=== PATIENT | female | born 1960 | race Caucasian/White ===

== ENCOUNTER 2017-11-01 15:20 | Emergency (ER) | payer MEDICAID, OTHER ==
[~2017-11-01] VITALS: Ht 165.1 cm; Wt 57.2 kg
[2017-11-01 15:53] LABS: *BILIRUBIN,URIN NEGATIVE (NEGATIVE); *BLOOD, URINE Trace-lysed (NEGATIVE); *CLARITY,URINE CLEAR (CLEAR); *COLOR,URINE LIGHT YELLOW (YELLOW); *KETONES,URINE NEGATIVE (NEGATIVE); *PROTEIN,URINE NEGATIVE (NEGATIVE); *UROBILINOGEN,URINE 0.2 E.U./dl (NORMAL); LEUKOCYTE ESTERASE ,URINE NEGATIVE (NEGATIVE); NITRITE, URINE NEGATIVE (NEGATIVE); UGLUCOSE NEGATIVE (NEGATIVE)
[2017-11-01 16:02] LABS: SQUAMOUS EPITHELIAL CELL,UR FEW /HPF (NONE SEEN); WBC,URINE 0-3 /HPF (0-3)
--- NOTE | 2017-11-01 16:16 | NUR ---
Patient discharged to home in stable conditon. Written and verbal after care instructions given to patient. Patient verbalizes understanding of instructions.
== END 2017-11-01 16:17 | disposition home or self-care (01) ==
LOC: ER 15:21
DX: N39.0 Urinary tract infection, site not specified (principal); Z88.0 Allergy status to penicillin; Z88.1 Allergy status to other antibiotic agents; Z88.2 Allergy status to sulfonamides
CPT/HCPCS: 81001; 99283; A4663

== ENCOUNTER 2017-11-04 14:00 | Emergency (ER) | payer OTHER ==
[~2017-11-04] VITALS: Ht 162.6 cm; Wt 59.0 kg
--- NOTE | 2017-11-04 14:24 | NUR ---
Urine collected and sent to LAB.
[2017-11-04 14:43] LABS: *BILIRUBIN,URIN NEGATIVE (NEGATIVE); *BLOOD, URINE Trace-lysed (NEGATIVE); *CLARITY,URINE CLEAR (CLEAR); *COLOR,URINE LIGHT YELLOW (YELLOW); *KETONES,URINE NEGATIVE (NEGATIVE); *PROTEIN,URINE NEGATIVE (NEGATIVE); *UROBILINOGEN,URINE 0.2 E.U./dl (NORMAL); LEUKOCYTE ESTERASE ,URINE NEGATIVE (NEGATIVE); NITRITE, URINE NEGATIVE (NEGATIVE); UGLUCOSE NEGATIVE (NEGATIVE)
[2017-11-04 14:55] LABS: RBC,URINE 0-3 /HPF (0-3); SQUAMOUS EPITHELIAL CELL,UR MODERATE /HPF (NONE SEEN); WBC,URINE NONE SEEN /HPF (0-3)
--- NOTE | 2017-11-04 16:20 | NUR ---
Dr Griffith at the bedside for MSE.
[2017-11-04 16:31] VITALS: BP 144/87
--- NOTE | 2017-11-04 16:32 | NUR ---
Patient discharged to home in stable conditon. Written and verbal after care instructions given. Patient verbalizes understanding of instructions.
== END 2017-11-04 16:32 | disposition home or self-care (01) ==
LOC: ER 14:01
DX: N39.0 Urinary tract infection, site not specified (principal); Z88.0 Allergy status to penicillin; Z88.2 Allergy status to sulfonamides
CPT/HCPCS: A4663

== ENCOUNTER 2017-11-14 16:19 | Emergency (ER) | payer OTHER ==
[~2017-11-14] VITALS: Ht 162.6 cm; Wt 59.0 kg
--- NOTE | 2017-11-14 17:40 | NUR ---
MD is at bedside evaluating the patient, pending MD orders
[2017-11-14] MEDS ORDERED: GENTAMICIN SULFATE OPHT DROP 5 ML BOTTLE RIGHTEYE ONE (17:47)
--- NOTE | 2017-11-14 18:04 | NUR ---
Patient discharged to home in stable conditon. Written and verbal after care instructions given to patient. Patient verbalizes understanding of instructions.
[2017-11-14] MEDS ORDERED: GENTAMICIN SULFATE OPHT DROP 5 ML BOTTLE ONE (18:07)
== END 2017-11-14 18:05 | disposition home or self-care (01) ==
LOC: ER 16:19
DX: H00.012 Hordeolum externum right lower eyelid (principal); Z88.0 Allergy status to penicillin; Z88.2 Allergy status to sulfonamides
CPT/HCPCS: A4663

== ENCOUNTER 2018-07-26 18:22 | Emergency (ER) | payer OTHER ==
[~2018-07-26] VITALS: Ht 165.1 cm; Wt 59.0 kg
--- NOTE | 2018-07-26 18:58 | NUR ---
Patient discharged to home in stable conditon. Written and verbal after care instructions given. Patient verbalizes understanding of instructions.
--- NOTE | 2018-07-26 21:35 | NUR ---
Barbara rivera in ED - 07/26/18 at 2232 by JANEY Pt resting comfortably in bed, has stopped crying and hyperventilating. States she feels much more relaxed.
== END 2018-07-26 19:00 | disposition home or self-care (01) ==
LOC: ER 18:27
DX: K21.9 Gastro-esophageal reflux disease without esophagitis (principal); G89.29 Other chronic pain; M54.9 Dorsalgia, unspecified; Z88.0 Allergy status to penicillin; Z88.1 Allergy status to other antibiotic agents; Z88.2 Allergy status to sulfonamides
CPT/HCPCS: 99283; A4663

== ENCOUNTER 2019-03-03 10:36 | Emergency (ER) | payer OTHER ==
[~2019-03-03] VITALS: Ht 165.1 cm; Wt 59.0 kg
--- NOTE | 2019-03-03 10:54 | NUR ---
SAMEER HERNÁNDEZ AT BEDSIDE FOR MSE.
--- NOTE | 2019-03-03 11:04 | NUR ---
Patient discharged to home in stable conditon. Written and verbal after care instructions given. Patient verbalizes understanding of instructions. ALL BELONGINGS W/ PT. PT SELF-AMBULATED W/O DIFFICULTY.
[2019-03-03 11:05] VITALS: BP 149/89
[2019-03-03] MEDS ORDERED: HYDROCODONE/APAP 5-325MG TABLET PO ONE (11:15)
== END 2019-03-03 11:07 | disposition home or self-care (01) ==
LOC: ER 10:36
DX: K21.9 Gastro-esophageal reflux disease without esophagitis (principal); F41.9 Anxiety disorder, unspecified; Z88.0 Allergy status to penicillin; Z88.1 Allergy status to other antibiotic agents; Z88.2 Allergy status to sulfonamides
CPT/HCPCS: 93005; A4663

== ENCOUNTER 2019-10-15 12:46 | Emergency (ER) | END 2019-10-15 14:14 | disposition home or self-care (01) | DX: H61.23 Impacted cerumen, bilateral (principal); F41.9 Anxiety disorder, unspecified; G89.29 Other chronic pain; M54.9 Dorsalgia, unspecified; Z88.0 Allergy status to penicillin; Z88.1 Allergy status to other antibiotic agents; Z88.2 Allergy status to sulfonamides ==

== ENCOUNTER 2023-08-23 15:53 | Emergency (ER) | payer OTHER ==
[~2023-08-23] VITALS: Ht 165.1 cm; Wt 62.1 kg
[2023-08-23 17:22] VITALS: BP 122/70; TEMP 98; O2SAT 100
== END 2023-08-23 17:22 | disposition home or self-care (01) ==
LOC: ER 16:00
DX: H61.23 Impacted cerumen, bilateral (principal); Z88.0 Allergy status to penicillin; Z88.1 Allergy status to other antibiotic agents; Z88.2 Allergy status to sulfonamides
CPT/HCPCS: A4606; A4663

== ENCOUNTER 2024-03-07 11:32 | Emergency (ER) | payer OTHER ==
[~2024-03-07] VITALS: Ht 162.6 cm; Wt 63.5 kg
[2024-03-07 12:29] VITALS: BP 128/78; TEMP 98; O2SAT 97
== END 2024-03-07 12:29 | disposition home or self-care (01) ==
LOC: ER 11:32
DX: H61.23 Impacted cerumen, bilateral (principal); Z60.2 Problems related to living alone; Z88.0 Allergy status to penicillin; Z88.1 Allergy status to other antibiotic agents; Z88.2 Allergy status to sulfonamides
CPT/HCPCS: A4606; A4663